=== PATIENT | male | born 1980 | race Caucasian/White ===

== ENCOUNTER 2020-04-11 11:51 | Emergency (ER) | payer BC, OTHER ==
[~2020-04-11] VITALS: Ht 172.7 cm; Wt 77.1 kg
--- NOTE | 2020-04-11 12:05 | NUR ---
PT IS IN ROOM #2B . DR ABEBE EVALUATED THE PT.
[2020-04-11] MEDS ORDERED: AZITHROMYCIN 250 MG TABLET PO ONE (12:15)
[2020-04-11] MEDS ORDERED: CEFTRIAXONE 500 MG VIAL IM ONE (12:15)
[2020-04-11] MEDS ORDERED: CEFTRIAXONE 500 MG VIAL ONE (12:17)
[2020-04-11] MEDS ORDERED: LIDOCAINE HCL 2% 20 ML VIAL ONE (12:18)
[2020-04-11] MEDS ORDERED: AZITHROMYCIN 250 MG TABLET ONE (12:18)
[2020-04-11 12:24] VITALS: BP 135/74
--- NOTE | 2020-04-11 12:25 | NUR ---
PT WAS D/C'd TO HOME. D/C INSTRUCTIONS GIVEN TO THE PT BY DR ABEBE.
== END 2020-04-11 12:25 | disposition home or self-care (01) ==
LOC: ER 11:52
DX: A64 Unspecified sexually transmitted disease (principal)
CPT/HCPCS: 96372; 99283; J0696; J3490; A4663; Q0144

== ENCOUNTER 2020-10-22 08:16 | Outpatient (CLI) | payer BC, OTHER ==
[2020-10-22 09:08] LABS: *BILIRUBIN,URIN NEGATIVE (NEGATIVE); *BLOOD, URINE NEGATIVE (NEGATIVE); *CLARITY,URINE CLEAR (CLEAR); *COLOR,URINE YELLOW (YELLOW); *KETONES,URINE NEGATIVE (NEGATIVE); *UROBILINOGEN,URINE 0.2 E.U./dl (NORMAL); LEUKOCYTE ESTERASE ,URINE NEGATIVE (NEGATIVE); NITRITE, URINE NEGATIVE (NEGATIVE); PH,URINE 7.5 (5.0-8.0); UGLUCOSE NEGATIVE (NEGATIVE)
[2020-10-22 09:16] LABS: HEMATOCRIT 46.7 % (36.7-47.1); MEAN CORPUSCULAR HEMOGLOBIN 30.8 uug (23.8-33.4); MEAN CORPUSCULAR VOLUME 90.7 fL (73.0-96.2); PLATELET COUNT (AUTO) 203 K/uL (152-348)
[2020-10-22 09:34] LABS: THYROID STIMULATING HORMONE 3.715 mIU/mL (0.358-3.740)
[2020-10-22 10:33] LABS: BILIRUBIN,TOTAL 0.5 mg/dL (0.2-1.0); CREATININE 1.1 mg/dL (0.6-1.3); POTASSIUM 3.8 mmol/L (3.5-5.1); TOTAL PROTEIN, SERUM 8.2 g/dL (6.4-8.2)
[2020-10-23 09:06] LABS: *TESTOSTERONE, SERUM 656 ng/dL (264-916)
[2020-10-24 05:07] LABS: *GC NAA Negative (Negative); *TRIC.VAG. NAA Negative (Negative)
== END 2020-10-22 23:59 | disposition home or self-care (01) ==
LOC: LAB 08:16
PROVIDERS: ATTEND Legal Medicine
DX: I10 Essential (primary) hypertension (principal); E78.00 Pure hypercholesterolemia, unspecified; E55.9 Vitamin D deficiency, unspecified; R30.0 Dysuria; Z00.00 Encounter for general adult medical examination without abnormal findings
CPT/HCPCS: 36415; 82306; 82746; 83550; 84402; 84403; 84443; 85025; 86592; 86694; 87086; 87491; 87806

== ENCOUNTER 2021-03-12 12:34 | Outpatient (CLI) | payer BC, OTHER ==
[2021-03-12 13:43] LABS: ALANINE AMINOTRANSFERASE 53 U/L (16-63); ALKALINE PHOSPHATASE 69 U/L (50-136); ASPARTATE AMINOTRANSFERASE 38 U/L (15-37); BILIRUBIN,TOTAL 0.4 mg/dL (0.2-1.0); FERRITIN 122 ng/mL (26-388); TOTAL PROTEIN, SERUM 8.4 g/dL (6.4-8.2)
[2021-03-12 13:47] LABS: *OCCULT BLOOD STOOL NEGATIVE (NEGATIVE)
[2021-03-12 13:51] LABS: IRON, SERUM 78 ug/dL (50-175)
[2021-03-12 13:55] LABS: BILIRUBIN,DIRECT < 0.1 mg/dL (0.0-0.2)
[2021-03-13 08:06] LABS: *TESTOSTERONE, SERUM 430 ng/dL (264-916)
== END 2021-03-12 23:59 | disposition home or self-care (01) ==
LOC: LAB 12:34
PROVIDERS: ATTEND Legal Medicine
DX: R19.7 Diarrhea, unspecified (principal)
CPT/HCPCS: 36415; 82746; 83550; 84402; 84403; 86592; 86625; 87046; 87177